=== PATIENT | male | born 1955 | race Two or more races ===

== ENCOUNTER 2017-03-24 19:35 | Emergency (ER) | payer MEDICAID, OTHER ==
[~2017-03-24] VITALS: Ht 185.4 cm; Wt 124.7 kg
[2017-03-24 19:46] VITALS: BP 164/92
[2017-03-24 20:18] LABS: Urine Bilirubin Negative (Negative); Urine Blood Negative /uL (Negative); Urine Color Yellow (Yellow); Urine Glucose 3+ mg/dL (Normal); Urine Ketone Negative (Negative); Urine Mucus FEW (None Seen); Urine Nitrite Negative (Negative); Urine RBC <1 /hpf (0 - 3); Urine Squamous Epithelial Cell FEW /hpf (<5)
[2017-03-24 20:22] LABS: Basophils # (auto) 0.2 uL; Eosinophils # (auto) 0.2 uL; Eosinophils % (auto) 2.5 % (0.0-7.0); Hemoglobin 16.8 g/dL (13.5-17.5); Lymphocytes # (auto) 3.1 uL; Lymphocytes % (auto) 32.7 % (10.0-50.0); Mean Corpuscular Hgb Conc. 33.7 g/dL (32.0-36.0); Mean Corpuscular Volume 86.2 fL (80.0-100.0); Mean Platelet Volume 8.8 fL (6.9-10.8); Monocytes # (auto) 0.9 uL; Monocytes % (auto) 9.4 % (0.0-12.0); Neutrophils # (auto) 5.1 uL; Neutrophils % (auto) 53.4 % (37.0-80.0); Nucleated Red Blood Cells % 0.1 %; Platelet Count (auto) 81 10^3/uL (140-450); Red Cell Distribution Width 15.6 % (11.8-14.3); White Blood Cell 9.5 10^3/uL (4.4-10.8)
[2017-03-24 20:34] LABS: Alkaline Phosphatase 58 U/L (45-117); Amylase 52 U/L (25-115); Anion Gap 7 (5-15); Aspartate Aminotransferase 9 U/L (15-37); BUN/Creatinine Ratio 19.2; Bilirubin, Total 0.5 mg/dL (0.2-1.0); Blood Urea Nitrogen 15 mg/dL (7-18); Calcium 8.6 mg/dL (8.5-10.1); Carbon Dioxide 29 mmol/L (21-32); Chloride 105 mmol/L (98-107); GFR African American 130 mL/min; GFR Non-African American 107 mL/min; Glucose 169 mg/dL (74-106); Magnesium 2.3 mg/dL (1.6-2.6); Potassium 3.6 mmol/L (3.5-5.1); Sodium 141 mmol/L (136-145); Total Protein 7.6 g/dL (6.4-8.2)
[2017-03-24 20:37] LABS: B-Type Natriuretic Peptide 54.05 pg/mL (0-100)
[2017-03-24 21:18] LABS: Large Platelets FEW; Platelet Estimate Decreased
== END 2017-03-25 04:26 | disposition left against medical advice (07) ==
LOC: ER 19:37
DX: R07.89 Other chest pain (principal); Z53.21 Procedure and treatment not carried out due to patient leaving prior to being seen by health care provider
CPT/HCPCS: 36415; 71010; 80053; 81001; 82150; 83690; 83735; 83880; 84484; 85025; 93005

== ENCOUNTER 2017-04-24 16:21 | Emergency (ER) | payer MEDICAID ==
[~2017-04-24] VITALS: Ht 182.9 cm; Wt 49.9 kg
[2017-04-24] MEDS ORDERED: SODIUM CHLORIDE 0.9% 1,000 ML IV ONE (17:28)
[2017-04-24 18:13] LABS: Albumin 2.1 g/dL (3.4-5.0); BUN/Creatinine Ratio 13.5; Calcium 8.2 mg/dL (8.5-10.1)
[2017-04-24 18:15] LABS: Bilirubin, Total 1.3 mg/dL (0.2-1.0); Total Protein 7.2 g/dL (6.4-8.2)
[2017-04-24 18:29] LABS: Basophils # (auto) 0.1 uL; Basophils % (auto) 0.4 % (0.0-2.0); Eosinophils # (auto) 0 uL; Hematocrit 36.2 % (41.0-53.0); Hemoglobin 11.9 g/dL (13.5-17.5); Lymphocytes # (auto) 0.7 uL; Lymphocytes % (auto) 3.7 % (10.0-50.0); Mean Corpuscular Hemoglobin 27.3 pg (28.0-32.0); Mean Corpuscular Hgb Conc. 32.9 g/dL (32.0-36.0); Mean Platelet Volume 9.8 fL (6.9-10.8); Monocytes % (auto) 5.4 % (0.0-12.0); Neutrophils # (auto) 17.4 uL; Neutrophils % (auto) 90.5 % (37.0-80.0); Platelet Count (auto) 78 10^3/uL (140-450); Red Cell Distribution Width 15.5 % (11.8-14.3); White Blood Cell 19.3 10^3/uL (4.4-10.8)
[2017-04-24 18:43] LABS: Lactic Acid w/Reflex 2.5 mmol/L (0.4-2.0)
[2017-04-24] MEDS ORDERED: VANCOMYCIN 1GM/250ML 250 ML IV ONE (19:00)
[2017-04-24] MEDS ORDERED: cefTRIAXone 1GM/10ml IVPUSH 10 ML IV ONE (19:00)
[2017-04-24 19:04] LABS: Giant Platelets Few; Platelet Estimate Decreased
[2017-04-24 19:05] LABS: Large Platelets FEW
[2017-04-24 19:14] LABS: REFLEX LACTIC ACID YES OR NO YES
[2017-04-25 01:08] VITALS: BP 94/63
== END 2017-04-25 01:19 | disposition home or self-care (01) ==
LOC: EDBD 16:21 → ER 16:22
DX: A41.9 Sepsis, unspecified organism (principal); E11.65 Type 2 diabetes mellitus with hyperglycemia; L02.211 Cutaneous abscess of abdominal wall; Z98.890 Other specified postprocedural states
CPT/HCPCS: 36415; 74176; 80053; 82150; 83605; 83690; 83735; 85025; 87040; 96361; 96365; 96375; 99291; J3370; J7030